=== PATIENT | male | born 1995 | race African-American/Black ===

== ENCOUNTER 2018-12-16 10:25 | Outpatient (CLI) | payer OTHER ==
--- NOTE | 2018-12-17 09:39 | OP Clinic Progress Note ---
SUBJECTIVE: Brian Tavarez is a 23-year-old male from [facility] that was sent here by referral from Dr. Archer today to have an ingrown toenail taken care of. The patient presents today stating that he has had ingrown toenail pain on his medial edge of his left great toe for 2 or 3 days now. He has dug at it and cut out as much as he could but feels that there is more that is still painful. He denies any purulence or abnormal drainage noted from the site. He does not admit to any fevers, chills, nausea, vomiting, shortness of breath or chest pain at this time. He denies any sort of medical problems or concerns and would like to have the procedure performed to remove a portion of the toenail today. The patient denies any known allergies. OBJECTIVE: Vitals: Temperature 97.6 degrees Fahrenheit, heart rate 100, respiration rate 18, blood pressure 128/92. O2 saturation is 97% on room air. Vascular: DP and PT pulses left foot are at 2+. Capillary refill time is less than 3 seconds to the toes of the left foot. Hair growth is present on all the toes, left foot. There is no edema noted, left foot. Dermatologic: There is obvious irritation with slight redness/erythema noted to the medial edge of the left great toenail. There is no purulence or malodor noted. The toenail has obviously been trimmed to a point that he is able but there is still an ingrown portion on the proximal half of the nail on the medial edge. There is no purulence or malodor noted. There are no other skin lesions or hyperkeratoses noted. Musculoskeletal: There is pain on palpation of the medial edge of the left great toenail. There are no other gross abnormalities noted. Neurologic: Light touch sensation is intact to the toes, left foot. ASSESSMENT AND PLAN: 1. Onychocryptosis is noted to the left great toenail medially. PROCEDURE #1: The risks and benefits of a left great toenail medial border partial nail avulsion were discussed with the patient that include but are not limited to bleeding and infection, and the patient has agreed and with both by written and verbal consent to go forward with the procedure for a partial nail avulsion of the left great toenail. He had the options of a temporary removal or permanent with chemical matrixectomy and the patient would like to just do a temporary procedure at this time and if it returns in the future then we will do the permanent. An alcohol swab was utilized to clean the left great toe and the left great toe was injected with 5 mL of a 1:1 mix of 2% lidocaine plain and 0.5% Marcaine plain. Once the toe was under complete anesthesia the toe was cleaned with Betadine prep. This was done with 2 swabs of Betadine all around the left great toe. The medial edge of the great toenail was then avulsed with a partial nail avulsion with nail splitters and a needle sales route driver. We do not have a hemostat here today. It was confirmed that there was no nail present in that medial border anymore, and the site was flushed with a copious amount of normal saline. This was then dried and triple antibiotic ointment, 4x4 gauze, 3-inch Adela and 1- inch Coban were applied beginning on the toe and extending onto the forefoot to help hold it on well. The patient tolerated the procedure well. Hemostasis was obtained with pressure and the patient was given instructions verbally and in paper form regarding taking care of this by beginning with removing the dressing tomorrow, washing it, drying it and applying antibiotic ointment and a Band-Aid daily. The patient knows he is not to soak it in a bathtub nor in a foot soak. He is allowed to do the foot soak only if he has washed the foot first in a separate area. The patient has no further questions or concerns and plans to return to clinic in 1 week on , so about 10 days, for a follow-up to make sure it is healing appropriately. The patient has no further questions and we will see him next week. Brown Webb D.P.M. (Dictated/Not Signed) Lucy Job#: [id number]
== END 2018-12-16 10:27 ==
LOC: POD 10:25
PROVIDERS: ATTEND Podiatrist Foot & Ankle Surgery
DX: L60.0 Ingrowing nail (principal)
CPT/HCPCS: 11730; J2001; J3490; A4554